=== PATIENT | male | born 1945 | race Caucasian/White ===

== ENCOUNTER 2018-12-25 14:14 | Day surgery (SDC) | payer MEDICARE ==
[~2018-12-25] VITALS: Ht 172.7 cm; Wt 99.3 kg
[2018-12-25] VITALS (8 sets, daily range): BP systolic 113–163; BP diastolic 19–84
[~2018-12-25 14:14] MED LIST: AMLO10TA PO; ASPI-1053 PO; CARV3.1289 PO; FLO0.4C PO; LACT1CAP73 PO; OMEP-50 PO; SIMV-42 PO; TICA90TA PO; TRIA1CAP6 PO
[2018-12-25] MEDS ORDERED: normal saline 1,000 ML IV SCH (14:50)
[2018-12-25] MEDS ORDERED: diphenhydrAMINE 25mg capsule PO PRN (14:50)
[2018-12-25] MEDS ORDERED: LIDOcaine/PRILOcaine 5gm cream TP ONE (14:50)
[2018-12-25] MEDS ORDERED: LORazepam 0.5 MG tablet PO PRN (14:50)
[2018-12-25] MEDS ORDERED: NITR0.4T SL (14:53)
[2018-12-25] MEDS ORDERED: iohexol 350MG/ML 100ml bottle IV ONE (16:32)
[2018-12-25] MEDS ORDERED: midazolam 2 mg/2 ml injection ONE (16:32)
[2018-12-25] MEDS ORDERED: fentaNYL/PF 50MCG/1 ML 2ML syringe ONE (16:32)
[2018-12-25] MEDS ORDERED: LIDOcaine 1% (10mg/ml)w/preservative injection 20ml MDV ONE (16:32)
[2018-12-25] MEDS ORDERED: heparin 1,000unit/ml 10ml vial 10 ML ONE (16:56)
[2018-12-25] MEDS ORDERED: verapamil 2.5 mg/ml inj IV ONE (16:56)
[2018-12-25] MEDS ORDERED: nitroGLYCERIN-Tridil 50MG/D5W 250 ML IV ONE (16:56)
== END 2018-12-25 20:25 | disposition home or self-care (01) ==
LOC: SSTAY O 14:14
PROVIDERS: ATTEND Internal Medicine Interventional Cardiology
DX: R94.39 Abnormal result of other cardiovascular function study (principal); R07.9 Chest pain, unspecified; R06.02 Shortness of breath; I25.10 Atherosclerotic heart disease of native coronary artery without angina pectoris; G47.33 Obstructive sleep apnea (adult) (pediatric); I10 Essential (primary) hypertension; Z95.5 Presence of coronary angioplasty implant and graft; Z86.73 Personal history of transient ischemic attack (TIA), and cerebral infarction without residual deficits; Z79.82 Long term (current) use of aspirin; Z79.899 Other long term (current) drug therapy; Z87.891 Personal history of nicotine dependence
CPT/HCPCS: 93005; 93458; 99152; C1769; C1894; J1644; J2001; J2250; J3010; J7030; Q0163; Q9967; A4620; A6258; J3490